=== PATIENT | female | born 1990 | race African-American/Black ===

== ENCOUNTER 2017-03-25 18:41 | Emergency (ER) | payer OTHER ==
--- NOTE | 2017-03-25 18:51 | PDOC ---
History of Present Illness - General History Source: Patient Exam Limitations: No Limitations - History of Present Illness Initial Comments: 03/25/17 19:06 A portion of this note was documented by scribe services under my direction. I have reviewed the details of the note, within reason, and agree with the documentation. The case summary and management plan written by me. Assessment and plan: This is a 26-year-old female who comes in complaining of pain in her left upper first was done to this. Patient has a chip of the tooth as well as a cavity in the tooth. Patient was at a dentist and had a root canal done on the other side and now this site as started to bother her. Patient is on clindamycin already and the ibuprofen for pain which she says isn't adequate. Patient can follow-up with her dentist in the morning. Patient given prescription for Percocet and will see her dentist in the morning. <Asif Maza I - Last Filed: 03/25/17 19:12> - General History Source: Patient Exam Limitations: No Limitations - History of Present Illness Initial Comments: 03/25/17 19:25 The patient is a 26-year-old female, with no significant past medical history, who presents to the ED today with a pain to her left upper wisdom tooth. Pt had a root canal procedure performed on her right upper tooth yesterday and was discharged with ibuprofen 800 mg and a course of clindamycin. Patient states that her pain is exacerbated when she bends her body over and alleviated after she brushes her teeth. Her last dose of ibuprofen was at 6 PM today. The patient denies having any other symptoms or injuries. PAST MEDICAL HISTORY: no significant history PAST SURGICAL HISTORY: root canal (right upper tooth) FAMILY HISTORY: no pertinent history SOCIAL HISTORY: Pt lives with family and is employed. Pt reports social drinking. Pt denies any tobacco or drug use. MEDICATIONS: reviewed ALLERGIES: As per nursing notes ROS General: No fevers or chills, no weakness, no weight loss HEENT: No change in vision. No sore throat,. No ear pain. +left upper wisdom tooth pain CardioVascular: No chest pain or shortness of breath Respiratory:No cough, or wheezing. Gastrointestinal: no nausea, vomiting, diarrhea or constipation, No rectal bleeding Genitourinary: No dysuria, hematuria, or frequency Musculoskeletal: No joint or swelling Neurologic: No headache, vertigo, dizziness or loss of consciousness Psychiatric: nor depression Skin: No rashes or easy bruising Endocrine: no increased thirst or abnormal weight change Allergic: no skin or latex allergy All other systems reviewed and normal PE GENERAL: The patient is awake, alert, and fully oriented, in no acute distress. HEAD: Normal with no signs of trauma. MOUTH:No tenderness, erythema, or swelling on palpation of the tooth or gums. No tenderness , warmth, or erythema of the face or sinuses overlying the area. + Tooth was noted to have a small chip with a cavity. NECK: No lymphadenopathy EYES: Pupils equal, round and reactive to light, extraocular movements intact, sclera anicteric, conjunctiva clear. EXTREMITIES: Normal range of motion, no edema. NEUROLOGICAL: Normal speech, normal gait. PSYCH: Normal mood, normal affect. SKIN: Warm, Dry, normal turgor, no rashes or lesions noted <Bozena Jacob - Last Filed: 03/25/17 19:29> - General Chief Complaint: Toothache Stated Complaint: TOOTHACHE Time Seen by Provider: 03/25/17 18:51 Past History <Asif Maza I - Last Filed: 03/25/17 19:12> <Bozena Jacob - Last Filed: 03/25/17 19:29> - Past Medical History Allergies/Adverse Reactions: Allergies Allergy/AdvReac Type Severity Reaction Status Date / Time amoxicillin Allergy Mild Verified 03/25/17 18:51 Penicillins Allergy Mild Verified 03/25/17 18:51 Home Medications: Ambulatory Orders Clindamycin [Cleocin -] 300 mg PO Q6HPO 03/25/17 Ibuprofen 800 mg PO TID PRN 03/25/17 Oxycodone HCl/Acetaminophen [Percocet 5-325 mg Tablet] 1 tab PO Q4H #10 tablet MDD 6 03/25/17 *Physical Exam - Vital Signs Last Vital Signs Temp Pulse Resp BP Pulse Ox 98.7 F 70 15 130/84 98 03/25/17 18:43 03/25/17 18:43 03/25/17 18:43 03/25/17 18:43 03/25/17 18:43 <Bozena Jacob - Last Filed: 03/25/17 19:29> *DC/Admit/Observation/Transfer - Discharge Dispostion Admit: No <Asif Maza I - Last Filed: 03/25/17 19:12> - Attestations Scribe Attestion: 03/25/17 19:29 Documentation prepared by Bozena Jacob, acting as certified medical asst for Asif Maza MD. <Bozena Jacob - Last Filed: 03/25/17 19:29> Diagnosis at time of Disposition: Dentalgia - Discharge Dispostion Disposition: HOME Condition at time of disposition: Good - Prescriptions Prescriptions: Oxycodone HCl/Acetaminophen [Percocet 5-325 mg Tablet] 1 tab PO Q4H #10 tablet MDD 6 - Referrals Referrals: Nolan Morin [Primary Care Provider] - - Patient Instructions Printed Discharge Instructions: DI for Dental Pain Additional Instructions: Continue to take your ibuprofen as prescribed for the pain if he needs something stronger you can take Percocet one tablet as often as every 6 hours if needed Is very important that you see your dentist in the morning. Continue to take your antibiotic clindamycin as prescribed Return to the emergency department immediately with ANY new, persistent or worsening symptoms. Continue any medications as previously prescribed by your physician. . Please make sure your doctor reviews the results of your emergency evaluation. Thank you for coming to the Emergency Department today for your care. It was a pleasure to see you today. Please note that your evaluation is INCOMPLETE until you follow-up with your doctor.
[2017-03-25 18:58] VITALS: BP 130/84; PULSE 70; TEMP 98.7; BMI 37.5
== END 2017-03-25 19:17 | disposition home or self-care (01) ==
LOC: FER 18:41
DX: K08.89 Other specified disorders of teeth and supporting structures (principal)
CPT/HCPCS: 99282-25